=== PATIENT | male | born 1955 | race Native Hawaiian/Other Pacific Islander ===

== ENCOUNTER 2018-02-02 02:44 | Inpatient (IN) | payer BC ==
[2018-02-02] MEDS ORDERED: Pantoprazole 80 MG in Sodium Chloride 0.9% 100 ML IV STA (03:01)
[2018-02-02] MEDS ORDERED: Sodium Chloride 0.9% 1,000 ML IV ONE (03:01)
--- NOTE | 2018-02-02 03:01 | C.PDOC ---
History Of Present Illness 63 year old male presents to the ED c/o rectal bleeding. Patient reports she had knee surgery done on 12/2017 after which he was placed on Aspirin 325 BID. Patient reports last night he noticed bright red blood after a bowel movements and again today prior to arrival he noticed bright red blood. Patient denies SOB , CP, palpitations, weakness, numbness. Time Seen by Provider: 02/02/18 03:01 Chief Complaint (Nursing): GI Problem History Per: Patient History/Exam Limitations: no limitations Onset/Duration Of Symptoms: Days Current Symptoms Are (Timing): Still Present Number Of Bleeding Episodes: Multiple: Amount of Blood Loss: Medium Severity: Moderate Pain Scale Rating Of: 4 Quality Of Discomfort: Cramping Associated Symptoms: Rectal Bleeding, Melena Currently Taking: Aspirin (325 mg BID) Recent travel outside of the [place]: No Additional History Per: Family Past Medical History Reviewed: Historical Data, Nursing Documentation, Vital Signs Vital Signs: Last Vital Signs Temp 97.7 F 02/02/18 02:54 Pulse 75 02/02/18 02:54 Resp 16 02/02/18 02:54 BP 144/79 02/02/18 02:54 Pulse Ox 100 02/02/18 03:27 - Medical History PMH: HTN, Hypercholesterolemia Surgical History: No Surg Hx Family History: States: No Known Family Hx - Social History Hx Alcohol Use: Yes Hx Substance Use: No Review Of Systems Constitutional: Negative for: Fever, Chills ENT: Negative for: Throat Pain Cardiovascular: Negative for: Chest Pain, Palpitations Respiratory: Negative for: Shortness of Breath Gastrointestinal: Positive for: Melena, Hematochezia Genitourinary: Negative for: Dysuria Musculoskeletal: Negative for: Back Pain Skin: Negative for: Rash Neurological: Negative for: Weakness, Numbness Psych: Negative for: Anxiety Physical Exam - Physical Exam Appears: Non-toxic, No Acute Distress Skin: Warm, Dry Head: Normacephalic Eye(s): bilateral: Normal Inspection Nose: No Discharge Oral Mucosa: Moist Neck: Supple Chest: Symmetrical Cardiovascular: Rhythm Regular, No Murmur Respiratory: No Rales, No Rhonchi, No Wheezing Gastrointestinal/Abdominal: Soft, No Tenderness, No Guarding, No Rebound Rectal: Blood Streaked Stool (Bright red in the vault), No Hemorrhoids, No Mass , No Tenderness Back: No CVA Tenderness Extremity: Normal ROM, Capillary Refill (< 2 seconds), Other (left knee surgical scar) Extremity: Bilateral: Normal Color And Temperature Pulses: Left Dorsalis Pedis: Normal, Right Dorsalis Pedis: Normal Neurological/Psych: Oriented x3 Gait: Steady ED Course And Treatment - Laboratory Results Result Diagrams: 02/02/18 03:22 04 03:22 ECG: Interpreted By Me, Viewed By Me O2 Sat by Pulse Oximetry: 100 (On RA) Pulse Ox Interpretation: Normal - Radiology CXR: Interpreted by Me, Viewed By Me CXR Interpretation: No: Infiltrates, Fracture, Pnemothorax Progress Note: Plan: - Labs. - EKG. - CXR. - IV fluids. - Protonix 80 mg IV. - UA Disposition Discussed With Dr.: Taj Sol Comment: accepted the pt on his service and took over the care at 3:57AM Doctor Will See Patient In The: Hospital Counseled Patient/Family Regarding: Studies Performed, Diagnosis - Disposition Disposition: HOSPITALIZED Disposition Time: 03:01 Condition: FAIR Forms: [employer] [facility] (Bengali) - POA Present On Arrival: None - Clinical Impression Clinical Impression: Gastrointestinal hemorrhage - Scribe Statement The provider has reviewed the documentation as recorded by the Scribe Stef Jean-Baptiste All medical record entries made by the Scribe were at my direction and personally dictated by me. I have reviewed the chart and agree that the record accurately reflects my personal performance of the history, physical exam, medical decision making, and the department course for this patient. I have also personally directed, reviewed, and agree with the discharge instructions and disposition. Decision To Admit - Pt Status Changed To: Hospital Disposition Of: Inpatient - Admit Certification Admit to Inpatient:: After my assessment, the patient will require hospitalization for at least two midnights. This is because of the severity of symptoms shown, intensity of services needed, and/or the medical risk in this patient being treated as an outpatient. - InPatient: Physician Admission Certification: I certify that this patient requires 2 or more midnights of care for the following reason:: After my assessment, the patient will require hospitalization for at least two midnights. This is because of the severity of symptoms shown, intensity of services needed, and/or the medical risk in this patient being treated as an outpatient. - . Bed Request Type: Regular Admitting Physician: Taj Sol Patient Diagnosis: Gastrointestinal hemorrhage
[2018-02-02 03:28] LABS: INR 0.9; PROTHROMBIN TIME 10.5 SECONDS (9.7-12.2)
[2018-02-02 03:33] LABS: BASO # 0.1 K/uL (0.0-0.2); BASO % 0.9 % (0.0-2.0); EOS # 0.5 K/uL (0.0-0.7); EOS % 8.4 % (0.0-4.0); LYMPH # 1.3 K/uL (1.0-4.3); LYMPH % 20.2 % (20.0-40.0); MEAN CELL VOLUME 77.5 fL (80.0-94.0); MEAN CORPUSCULAR HEMOGLOBIN 25.8 pg (27.0-31.0); MEAN CORPUSCULAR HGB CONC 33.3 g/dL (33.0-37.0); MONO # 0.4 K/uL (0.0-0.8); MONO % 5.7 % (0.0-10.0); NEUT # 4.1 K/uL (1.8-7.0); NEUT % 64.8 % (50.0-75.0); RBC 4.25 Mil/uL (4.40-5.90); RED CELL DISTRIBUTION WIDTH 14.9 % (11.5-14.5); WHITE BLOOD COUNT 6.3 K/uL (4.8-10.8)
[2018-02-02 03:37] LABS: ALBUMIN 3.9 g/dL (3.5-5.0); CALCIUM 9.2 mg/dl (8.6-10.4)
[2018-02-02 04:47] LABS: URINE BILIRUBIN NEGATIVE (NEGATIVE); URINE BLOOD NEGATIVE (NEGATIVE); URINE CLARITY Hazy (Clear); URINE COLOR Yellow (YELLOW); URINE GLUCOSE (UA) NORMAL (Normal); URINE LEUKOCYTE ESTERASE NEG Leu/uL (Negative); URINE PROTEIN 2+ mg/dL (NEGATIVE); URINE UROBILINOGEN NORMAL mg/dL (0.2-1.0)
[2018-02-02 05:27] VITALS: RESP 20
[2018-02-02] MEDS: (Novolog) Insulin Aspart, Recombinant 100 u/ml 10 ml vial SC SCH ×4 (08:38→22:28)
[2018-02-02] MEDS ORDERED: METOPROLOL TARTRATE 100 MG PO SCH (10:00)
--- NOTE | 2018-02-02 11:45 | RAD ---
PROCEDURE: CHEST RADIOGRAPH, 1 VIEW HISTORY: GI Bleeding COMPARISON: None available. FINDINGS: LUNGS: Suspect mild bibasilar atelectasis PLEURA: No pneumothorax or pleural fluid seen. CARDIOVASCULAR: Heart remains enlarged. OSSEOUS STRUCTURES: Mild multilevel degenerative spondylosis of the thoracic spine. VISUALIZED UPPER ABDOMEN: Normal. OTHER FINDINGS: None. IMPRESSION: Suspect mild bibasilar atelectasis
[2018-02-02 16:52] VITALS: O2SAT 97
--- NOTE | 2018-02-02 17:59 | CP.PCM.HP ---
History of Present Illness - History of Present Illness History of Present Illness: 63 years old [place] male came to the ED last night complaining of bright red blood from the rectum after defecating. He denies any abdominal pain, any rectal pain. He has been constipated since 01/01/2018, the day of his left knee replacement, and attributed it to the Oxycodone he is taking for pain management. He was aslo put on ASA 325 mg PO BID by his surgeon since then. He states that he had a colonoscopy 6-7 years ago( He does not remember the name of his director health) and was told to be OK. He is known to have a HPTN, an osteoarthritis of the knees, an IDDM, a diabetic peripheral neuropathy, a hyperlipidemia. He denies any cigarette smoking, any FHx of colon cancer. Present on Admission - Present on Admission Any Indicators Present on Admission: No Review of Systems - Gastrointestinal Gastrointestinal: Constipation Additional comments: Painless rectal bleeding. Past Patient History - Infectious Disease Hx of Infectious Diseases: None - Tetanus Immunizations Tetanus Immunization: Unknown - Past Medical History & Family History Past Medical History?: Yes - Past Social History Smoking Status: Never Smoked Alcohol: None Drugs: Denies Home Situation {Lives}: With Family Domestic Violence: Negative - CARDIAC Hx Hypercholesterolemia: Yes Hx Hypertension: Yes - PULMONARY Hx Respiratory Disorders: No - NEUROLOGICAL Hx Neurological Disorder: No - HEENT Hx HEENT Problems: No - RENAL Hx Chronic Kidney Disease: No - ENDOCRINE/METABOLIC Hx Diabetes Mellitus Type 1: Yes - HEMATOLOGICAL/ONCOLOGICAL Hx Blood Disorders: No Hx Blood Transfusions: No - INTEGUMENTARY Hx Dermatological Problems: No - MUSCULOSKELETAL/RHEUMATOLOGICAL Hx Musculoskeletal Disorders: No Hx Degenerative Joint Disease: Yes Hx Osteoarthritis: Yes - GASTROINTESTINAL Hx Gastrointestinal Disorders: No - GENITOURINARY/GYNECOLOGICAL Hx Genitourinary Disorders: No - PSYCHIATRIC Hx Psychophysiologic Disorder: No Hx Anxiety: Yes Hx Substance Use: No - SURGICAL HISTORY Hx Joint Replacement: Yes (Total left knee replacement on 01/01/2018 at [facility] Hx Orthopedic Surgery: Yes (lt.knee (total knee replacement)) - ANESTHESIA Hx Anesthesia: Yes Hx Anesthesia Reactions: No Hx Malignant Hyperthermia: No Has any member of the family had a problem w/ anesthesia?: No Meds Allergies/Adverse Reactions: Allergies Allergy/AdvReac Type Severity Reaction Status Date / Time No Known Allergies Allergy Verified 10/20/12 13:13 Physical Exam - Constitutional Appears: No Acute Distress - Head Exam Head Exam: NORMAL INSPECTION - Eye Exam Eye Exam: Normal appearance Pupil Exam: NORMAL ACCOMODATION - ENT Exam ENT Exam: Normal Exam - Neck Exam Neck exam: Positive for: Normal Inspection - Respiratory Exam Respiratory Exam: Clear to Auscultation Bilateral, NORMAL BREATHING PATTERN - Cardiovascular Exam Cardiovascular Exam: REGULAR RHYTHM - GI/Abdominal Exam GI & Abdominal Exam: Normal Bowel Sounds, Soft - Rectal Exam Rectal Exam: Deferred - Exam Exam: NORMAL INSPECTION - Extremities Exam Extremities exam: Positive for: normal inspection - Back Exam Back exam: NORMAL INSPECTION - Neurological Exam Neurological exam: Alert, CN II-XII Intact, Normal Gait, Oriented x3 - Psychiatric Exam Psychiatric exam: Anxious - Skin Skin Exam: Dry, Intact, Normal Color, Warm Results - Vital Signs Recent Vital Signs: Last Vital Signs Temp 97.7 F 02/02/18 15:15 Pulse 74 02/02/18 15:15 Resp 20 02/02/18 15:15 BP 114/72 02/02/18 15:15 Pulse Ox 97 02/02/18 15:15 - Labs Result Diagrams: 02/02/18 03:22 02/02/18 03:22 Labs: Laboratory Results - last 24 hr 02/02/18 02/02/18 02/02/18 03:01 03:02 03:11 WBC RBC Hgb Hct MCV MCH MCHC RDW Plt Count MPV Neut % (Auto) Lymph % (Auto) [place] % (Auto) Eos % (Auto) Baso % (Auto) Neut # (Auto) Lymph # (Auto) [place] # (Auto) Eos # (Auto) Baso # (Auto) PT INR APTT Sodium Potassium Chloride Carbon Dioxide Anion Gap BUN Creatinine Est GFR ( Amer) Est GFR (Non-Af Amer) POC Glucose (mg/dL) Random Glucose Calcium Total Bilirubin AST ALT Alkaline Phosphatase Total Protein Albumin Globulin Albumin/Globulin Ratio Lipase Urine Color Yellow Urine Clarity Hazy Urine pH 7.0 Ur Specific [place] 1.008 Urine Protein 2+ H Urine Glucose (UA) Normal Urine Ketones Negative Urine Blood Negative Urine Nitrate Negative Urine Bilirubin Negative Urine Urobilinogen Normal Ur Leukocyte Esterase Neg Urine WBC (Auto) < 1 Stool Occult Blood Positive H Blood Type B POSITIVE Antibody Screen Negative 02/02/18 02/02/18 02/02/18 03:22 03:22 03:22 WBC 6.3 RBC 4.25 L Hgb 11.0 L Hct 33.0 L MCV 77.5 L MCH 25.8 L MCHC 33.3 RDW 14.9 H Plt Count 277 MPV 9.0 Neut % (Auto) 64.8 Lymph % (Auto) 20.2 [place] % (Auto) 5.7 Eos % (Auto) 8.4 H Baso % (Auto) 0.9 Neut # (Auto) 4.1 Lymph # (Auto) 1.3 [place] # (Auto) 0.4 Eos # (Auto) 0.5 Baso # (Auto) 0.1 PT 10.5 INR 0.9 APTT 34 Sodium 140 Potassium 4.0 Chloride 97 L Carbon Dioxide 28 Anion Gap 20 BUN 31 H Creatinine 2.8 H Est GFR ( Amer) 28 Est GFR (Non-Af Amer) 23 POC Glucose (mg/dL) Random Glucose 81 Calcium 9.2 Total Bilirubin 0.5 AST 28 ALT 13 L Alkaline Phosphatase 56 Total Protein 7.7 Albumin 3.9 Globulin 3.8 Albumin/Globulin Ratio 1.0 Lipase 711 H Urine Color Urine Clarity Urine pH Ur Specific [place] Urine Protein Urine Glucose (UA) Urine Ketones Urine Blood Urine Nitrate Urine Bilirubin Urine Urobilinogen Ur Leukocyte Esterase Urine WBC (Auto) Stool Occult Blood Blood Type Antibody Screen 02/02/18 02/02/18 02/02/18 07:21 11:27 16:39 WBC RBC Hgb Hct MCV MCH MCHC RDW Plt Count MPV Neut % (Auto) Lymph % (Auto) [place] % (Auto) Eos % (Auto) Baso % (Auto) Neut # (Auto) Lymph # (Auto) [place] # (Auto) Eos # (Auto) Baso # (Auto) PT INR APTT Sodium Potassium Chloride Carbon Dioxide Anion Gap BUN Creatinine Est GFR ( Amer) Est GFR (Non-Af Amer) POC Glucose (mg/dL) 190 H 175 H 125 H Random Glucose Calcium Total Bilirubin AST ALT Alkaline Phosphatase Total Protein Albumin Globulin Albumin/Globulin Ratio Lipase Urine Color Urine Clarity Urine pH Ur Specific [place] Urine Protein Urine Glucose (UA) Urine Ketones Urine Blood Urine Nitrate Urine Bilirubin Urine Urobilinogen Ur Leukocyte Esterase Urine WBC (Auto) Stool Occult Blood Blood Type Antibody Screen Assessment & Plan (1) Rectal bleeding Assessment and Plan: GI evaluation. Follow up CBC. Status: Acute (2) Insulin dependent diabetes mellitus Assessment and Plan: To control blood glucose with Insulin aspartate according to Accucheck findings. Status: Chronic Decision To Admit - Pt Status Changed To: Hospital Disposition Of: Inpatient - Admit Certification Admit to Inpatient:: After my assessment, the patient will require hospitalization for at least two midnights. This is because of the severity of symptoms shown, intensity of services needed, and/or the medical risk in this patient being treated as an outpatient. - InPatient: Physician Admission Certification:: After my assessments, the patient needs hospitalization for at least 2 midnights. - . Bed Request Type: Regular Admitting Physician: Taj Sol
[2018-02-03 06:56] LABS: BASO # 0.1 K/uL (0.0-0.2); BASO % 2.1 % (0.0-2.0); EOS # 0.3 K/uL (0.0-0.7); EOS % 5.2 % (0.0-4.0); HEMOGLOBIN 10.7 g/dL (12.0-18.0); LYMPH # 1.8 K/uL (1.0-4.3); LYMPH % 27.9 % (20.0-40.0); MEAN CELL VOLUME 78.3 fL (80.0-94.0); MEAN CORPUSCULAR HEMOGLOBIN 25.9 pg (27.0-31.0); MEAN PLATELET VOLUME 9.6 fL (7.2-11.7); MONO # 0.8 K/uL (0.0-0.8); MONO % 11.8 % (0.0-10.0); NEUT # 3.4 K/uL (1.8-7.0); PROTHROMBIN TIME 10.8 SECONDS (9.7-12.2); RBC 4.13 Mil/uL (4.40-5.90); RED CELL DISTRIBUTION WIDTH 14.8 % (11.5-14.5); WHITE BLOOD COUNT 6.4 K/uL (4.8-10.8)
[2018-02-03 07:39] VITALS: BP 138/74; PULSE 76
[2018-02-03] MEDS: (Novolog) Insulin Aspart, Recombinant 100 u/ml 10 ml vial SC SCH ×3 (07:50→17:19)
--- NOTE | 2018-02-03 10:22 | CP.PCM.CON ---
History of Present Illness - History of Present Illness History of Present Illness: This is a 63 year old man admitted with rectal bleeding. Patient is one month post left total knee replacement, and he was treated with narcotics for post-operative pain . He was also treated with aspirin 325 mg daily. Surgery, he developed constipation, bowel movements every two to three days, firm. He noted BRBPR on Saturday and presented to the ER. He denies having diarrhea or constipation before the surgery. He had a colonoscopy over five years ago which was reportedly normal, although the report is unavailable at this time. He also denies having loss of appetite, loss of weight, heartburn, difficulty swallowing, abdominal bar nor previous rectal bleeding. Review of Systems - Review of Systems All systems: reviewed and no additional remarkable complaints except - Constitutional Constitutional: absent: Chills, Fever - Cardiovascular Cardiovascular: absent: Chest Pain, Palpitations - Respiratory Respiratory: absent: Dyspnea - Gastrointestinal Gastrointestinal: Constipation, Hematochezia. absent: Abdominal Pain, Dysphagia , Heartburn, Nausea, Vomiting - Integumentary Integumentary: absent: Rash - Neurological Neurological: absent: Weakness - Psychiatric Psychiatric: absent: Anxiety Past Patient History - Infectious Disease Hx of Infectious Diseases: None - Tetanus Immunizations Tetanus Immunization: Unknown - Past Medical History & Family History Past Medical History?: Yes - Past Social History Smoking Status: Never Smoked Alcohol: None Drugs: Denies Home Situation {Lives}: With Family Domestic Violence: Negative - CARDIAC Hx Hypercholesterolemia: Yes Hx Hypertension: Yes - PULMONARY Hx Respiratory Disorders: No - NEUROLOGICAL Hx Neurological Disorder: No - HEENT Hx HEENT Problems: No - RENAL Hx Chronic Kidney Disease: No - ENDOCRINE/METABOLIC Hx Diabetes Mellitus Type 1: Yes - HEMATOLOGICAL/ONCOLOGICAL Hx Blood Disorders: No Hx Blood Transfusions: No - INTEGUMENTARY Hx Dermatological Problems: No - MUSCULOSKELETAL/RHEUMATOLOGICAL Hx Musculoskeletal Disorders: No Hx Degenerative Joint Disease: Yes Hx Osteoarthritis: Yes - GASTROINTESTINAL Hx Gastrointestinal Disorders: No - GENITOURINARY/GYNECOLOGICAL Hx Genitourinary Disorders: No - PSYCHIATRIC Hx Psychophysiologic Disorder: No Hx Anxiety: Yes Hx Substance Use: No - SURGICAL HISTORY Hx Joint Replacement: Yes (Total left knee replacement on 01/01/2018 at [facility] Hx Orthopedic Surgery: Yes (lt.knee (total knee replacement)) - ANESTHESIA Hx Anesthesia: Yes Hx Anesthesia Reactions: No Hx Malignant Hyperthermia: No Has any member of the family had a problem w/ anesthesia?: No Meds Allergies/Adverse Reactions: Allergies Allergy/AdvReac Type Severity Reaction Status Date / Time No Known Allergies Allergy Verified 10/20/12 13:13 - Medications Medications: Current Medications Amlodipine Besylate (Norvasc) 5 mg PO [facility] Last Admin: 02/02/18 21:06 Dose: 5 mg Docusate Sodium (Colace) 100 mg PO BID [facility] Last Admin: 02/02/18 17:51 Dose: 100 mg Fenofibrate (Tricor) 145 mg PO [facility] Last Admin: 02/02/18 21:11 Dose: 145 mg Insulin Aspart (Novolog) 0 unit [facility] PRN Reason: Protocol Last Admin: 02/03/18 07:50 Dose: Not Given Losartan Potassium (Cozaar) 100 mg PO [facility] Last Admin: 02/02/18 21:05 Dose: 100 mg Metoprolol Tartrate (Lopressor) 100 mg PO BID [facility] Last Admin: 02/02/18 17:55 Dose: 100 mg Nortriptyline HCl (Pamelor) 20 mg PO [facility] Last Admin: 02/02/18 21:06 Dose: 20 mg Pneumococcal Polyvalent Vaccine (Pneumovax 23 Vaccine) 0.5 ml IM .ONCE ONE Stop: 02/04/18 10:01 Pregabalin (Lyrica) 75 mg PO TID [facility] Last Admin: 02/02/18 17:51 Dose: 75 mg Rosuvastatin Calcium (Crestor) 10 mg PO [facility] Last Admin: 02/02/18 21:06 Dose: 10 mg Physical Exam - Constitutional Appears: No Acute Distress - Head Exam Head Exam: ATRAUMATIC, NORMOCEPHALIC - Eye Exam Eye Exam: EOMI, PERRL - Neck Exam Neck exam: Negative for: Lymphadenopathy, Thyromegaly - Respiratory Exam Respiratory Exam: NORMAL BREATHING PATTERN. absent: Rales, Rhonchi, Wheezes - Cardiovascular Exam Cardiovascular Exam: REGULAR RHYTHM, +S1, +S2. absent: Gallop, Rubs, Systolic Murmur - GI/Abdominal Exam GI & Abdominal Exam: Normal Bowel Sounds, Soft. absent: Mass, Organomegaly, Tenderness - Rectal Exam Additional comments: Normal sphincter tone, no masses - Extremities Exam Extremities exam: Negative for: pedal edema Additional comments: Healing incision left knee Results - Vital Signs Recent Vital Signs: Last Vital Signs Temp 97.3 F L 02/03/18 07:35 Pulse 76 02/03/18 07:35 Resp 20 02/03/18 07:35 BP 138/74 02/03/18 07:35 Pulse Ox 97 02/03/18 07:35 - Labs Result Diagrams: 02/03/18 06:40 02/02/18 03:22 Labs: Laboratory Results - last 24 hr 02/02/18 02/02/18 02/02/18 11:27 16:39 21:15 WBC RBC Hgb Hct MCV MCH MCHC RDW Plt Count MPV Neut % (Auto) Lymph % (Auto) [place] % (Auto) Eos % (Auto) Baso % (Auto) Neut # (Auto) Lymph # (Auto) [place] # (Auto) Eos # (Auto) Baso # (Auto) PT INR APTT POC Glucose (mg/dL) 175 H 125 H 114 H 02/03/18 02/03/18 02/03/18 06:40 06:40 07:33 WBC 6.4 RBC 4.13 L Hgb 10.7 L Hct 32.4 L MCV 78.3 L MCH 25.9 L MCHC 33.0 RDW 14.8 H Plt Count 263 MPV 9.6 Neut % (Auto) 53.0 Lymph % (Auto) 27.9 [place] % (Auto) 11.8 H Eos % (Auto) 5.2 H Baso % (Auto) 2.1 H Neut # (Auto) 3.4 Lymph # (Auto) 1.8 [place] # (Auto) 0.8 Eos # (Auto) 0.3 Baso # (Auto) 0.1 PT 10.8 INR 1.0 APTT 31 POC Glucose (mg/dL) 137 H Assessment & Plan - Assessment and Plan (Free Text) Assessment: Patient had an episode of rectal bleeding in the setting of constipation following administration of narcotic analgesics. The VS are stable, and the HGB was 11.0, repeat 10.7. He had a colonoscopy five or more years ago, and the report should be requested. He should be treated with stool softeners such as docusate or Miralax and discontinuing narcotics. Colonoscopy may be performed as an outpatient in the absence of recurrent bleeding or significant drop in HGB..
--- NOTE | 2018-02-03 11:58 | CARD ---
APPROVED REPORT EKG Measurement Heart [id number] [id number] <Conclusion> Normal sinus rhythm Moderate voltage criteria for LVH, may be normal variant Borderline ECG
[2018-02-03 15:55] VITALS: TEMP 98.1
--- NOTE | 2018-02-03 17:46 | CP.PCM.PN ---
Subjective - Date & Time of Evaluation Date of Evaluation: 02/03/18 Time of Evaluation: 17:43 - Subjective Subjective: Patient has no morre rectal bleeding on rectal pain on defecation. Hgb: 10.8. Seen this AM by Dr Stanley. For colonoscopy as an out patient if rectal bleeding reccurs. To discharge home today. Objective - Vital Signs/Intake and Output Vital Signs (last 24 hours): Temp Pulse Resp BP Pulse Ox 98.1 F 76 20 138/74 97 02/03/18 15:00 02/03/18 15:11 02/03/18 15:00 02/03/18 15:11 02/03/18 15:11 Intake and Output: 02/03/18 02/03/18 06:59 18:59 Intake Total 700 500 Balance 700 500 - Medications Medications: Current Medications Amlodipine Besylate (Norvasc) 5 mg PO [facility] Last Admin: 02/02/18 21:06 Dose: 5 mg Docusate Sodium (Colace) 100 mg PO BID [facility] Last Admin: 02/03/18 17:19 Dose: 100 mg Fenofibrate (Tricor) 48 mg PO [facility] Insulin Aspart (Novolog) 0 unit [facility] PRN Reason: Protocol Last Admin: 02/03/18 17:19 Dose: 1 unit Losartan Potassium (Cozaar) 100 mg PO [facility] Last Admin: 02/02/18 21:05 Dose: 100 mg Metoprolol Tartrate (Lopressor) 100 mg PO BID [facility] Last Admin: 02/03/18 17:19 Dose: 100 mg Nortriptyline HCl (Pamelor) 20 mg PO [facility] Last Admin: 02/02/18 21:06 Dose: 20 mg Pneumococcal Polyvalent Vaccine (Pneumovax 23 Vaccine) 0.5 ml IM .ONCE ONE Stop: 02/04/18 10:01 Pregabalin (Lyrica) 75 mg PO TID [facility] Last Admin: 02/03/18 17:19 Dose: 75 mg Rosuvastatin Calcium (Crestor) 10 mg PO HS [facility] Last Admin: 02/02/18 21:06 Dose: 10 mg - Labs Labs: 02/03/18 06:40 02/02/18 03:22 PT 10.8 SECONDS (9.7-12.2) 02/03/18 06:40 INR 1.0 02/03/18 06:40 APTT 31 SECONDS (21-34) 02/03/18 06:40 - Constitutional Appears: No Acute Distress - Head Exam Head Exam: NORMAL INSPECTION - Eye Exam Eye Exam: Normal appearance - ENT Exam ENT Exam: Normal Exam - Neck Exam Neck Exam: Normal Inspection - Respiratory Exam Respiratory Exam: Clear to Ausculation Bilateral, NORMAL BREATHING PATTERN - Cardiovascular Exam Cardiovascular Exam: REGULAR RHYTHM - GI/Abdominal Exam GI & Abdominal Exam: Soft, Normal Bowel Sounds - Rectal Exam Rectal Exam: Deferred - Extremities Exam Extremities Exam: Normal Inspection - Back Exam Back Exam: NORMAL INSPECTION - Neurological Exam Neurological Exam: Alert, Awake, Normal Gait, Oriented x3 - Psychiatric Exam Psychiatric exam: Anxious - Skin Skin Exam: Dry, Intact, Normal Color, Warm Assessment and Plan (1) Rectal bleeding Assessment & Plan: For a colonoscopy as an outpatient if rectal bleeding reccurs. Status: Resolved (2) Insulin dependent diabetes mellitus Assessment & Plan: To resume same dosage of Lantus and Glimepiride as an outpatient. To decrease Januvia to 25 mg PO qd because of renal insufficiency. Status: Chronic
[2018-02-04] MEDS ORDERED: Pneumococcal 23-Valent Vaccine IM ONE (10:00)
== END 2018-02-03 18:54 | disposition home or self-care (01) | DRG 392 ==
LOC: C.ER 02:44 → C.3T 03:56
PROVIDERS: ADMIT Internal Medicine Cardiovascular Disease; ATTEND Internal Medicine Cardiovascular Disease
DX: K59.00 Constipation, unspecified (principal); K62.5 Hemorrhage of anus and rectum; T40.2X5A Adverse effect of other opioids, initial encounter; I10 Essential (primary) hypertension; E11.42 Type 2 diabetes mellitus with diabetic polyneuropathy; E78.00 Pure hypercholesterolemia, unspecified; Z96.652 Presence of left artificial knee joint; Z79.4 Long term (current) use of insulin; Z79.82 Long term (current) use of aspirin